=== PATIENT | female | born 1990 | race Caucasian/White ===

== ENCOUNTER 2018-08-15 12:22 | Emergency (ER) | payer SELFPAY ==
[~2018-08-15] VITALS: Ht 154.9 cm; Wt 67.0 kg
[2018-08-15 12:41] VITALS: BP 140/97
[2018-08-15] MEDS ORDERED: ONDANSETRON HCL 4MG TABLET PO ONE (12:45)
[2018-08-15] MEDS ORDERED: AZITHROMYCIN 500 MG TABLET PO ONE (12:45)
== END 2018-08-15 13:25 | disposition home or self-care (01) ==
LOC: ER 12:22
DX: A54.9 Gonococcal infection, unspecified (principal); A74.9 Chlamydial infection, unspecified; F12.90 Cannabis use, unspecified, uncomplicated
CPT/HCPCS: 99283; Q0162